=== PATIENT | male | born 1970 | race African-American/Black ===

== ENCOUNTER 2019-01-08 10:52 | Emergency (ER) | payer OTHER ==
[~2019-01-08] VITALS: Ht 165.1 cm; Wt 81.7 kg
[2019-01-08] MEDS ORDERED: CORTISPORIN OTI10 M2 OTIC (12:16)
[2019-01-08 12:25] VITALS: BP 123/74
== END 2019-01-08 12:26 | disposition home or self-care (01) ==
LOC: ER 10:52
DX: T16.2XXA Foreign body in left ear, initial encounter (principal); H60.92 Unspecified otitis externa, left ear; X58.XXXA Exposure to other specified factors, initial encounter; Y93.89 Activity, other specified; Y92.89 Other specified places as the place of occurrence of the external cause; Y99.8 Other external cause status